=== PATIENT | female | born 1965 | race Caucasian/White ===

== ENCOUNTER → 2017-07-27 11:17 | Outpatient (CLI) | payer BC, SELFPAY ==
--- NOTE | 2017-07-27 11:22 | XR_ITS ---
XR chest 2V HISTORY: ITS.REASON: CHEST PAIN ORDERING PHYSICIAN: Dior Escobedo PATIENT AGE: 51 years COMPARISON: None available FINDINGS: The cardiomediastinal silhouette and pulmonary vascularity are within normal limits. The lungs are clear without infiltrates, suspicious nodules, or pleural effusions. No acute bony abnormalities. IMPRESSION: Negative chest, no acute finding
== END ==
PROVIDERS: PCP Family Medicine; Visit Provider Nurse Practitioner Family
DX: E03.9 Hypothyroidism, unspecified (principal); Z87.898 Personal history of other specified conditions
CPT/HCPCS: 71046; 93005

== ENCOUNTER → 2018-05-03 16:14 | Outpatient (CLI) | payer BC, SELFPAY ==
--- NOTE | 2018-05-03 16:18 | MM_ITS ---
MM Dig screening mamm BI w/CAD CAD Screening COMPARISON: Additional views right breast 12/05/2015 and digital mammograms with CAD 11/07/2015 INDICATION: There is a history of breast cancer patient's mother diagnosed after menopause. TECHNIQUE: Standard CC and MLO images were obtained. R2 CAD reviewed. FINDINGS: Moderate scattered fiber glandular densities are seen in the central portions of both breasts and the findings are bilateral and symmetrical. There is a stable nodular density near the axilla tail right breast likely lobe lying node. There is no suspicious lesion and no suspicious microcalcifications. IMPRESSION: Moderate breast density with no suspicious lesion seen BI-RADS Category: 2 Benign Finding(s) RECOMMENDED FOLLOW-UP: 1YR - 1 YEAR FOLLOW-UP (A letter has been sent to the patient regarding results of the study.)
== END ==
PROVIDERS: PCP Family Medicine; Visit Provider Family Medicine
DX: Z12.31 Encounter for screening mammogram for malignant neoplasm of breast (principal)
CPT/HCPCS: 77067

== ENCOUNTER → 2020-02-20 07:38 | Outpatient (CLI) | payer BC, SELFPAY ==
--- NOTE | 2020-02-20 07:41 | MM_ITS ---
PROCEDURE: MM DIG SCREENING MAMM BI W/CAD Referring Doctor: Dior Escobedo Patient Age:54Y CLINICAL INDICATION: SCREENING routine. No hormones. No new complaints. Positive family history: Mother with breast cancer age 60 postmenopausal; Also sister with breast cancer. COMPARISON: MG DMSB DIGITAL MAMM-SCREEN BILATERAL from 11/15/2011 MG DMSB DIG MAMM-SCREEN SUKHDEV from 11/07/2015 MG DMDXUAVR DIG MAMM-DX UNI ADD VIEWS-RT from 12/05/2015 MG SCBI MM Dig screening mamm BI w/CAD from 05/03/2018 TECHNIQUE: Standard CC and MLO images were obtained. R2 CAD reviewed. Bilateral digital breast tomosynthesis included. Additional CC nipple profile views both breast FINDINGS: Moderate heterogeneous fibroglandular elements bilaterally, no suspicious calcifications No new dominant or suspicious mass... No prominent new findings versus prior studies but no suspicious calcifications Right breast: Stable with no significant new findings Stable minimal areas of asymmetric density Left breast: No new areas of significant concern Areas of minor density on one view dissipate on the other and not seen on tomosynthesis views IMPRESSION: Stable bilateral mammogram No new areas of significant concern Bilateral follow-up 1 year recommended BI-RAD Category: 2 Benign Finding(s) FOLLOW-UP: 1YR 1 Year Follow-up. (A letter has been sent to the patient regarding results of the study.) Dictated by: Carlos Eduardo Wilkerson MD 02/26/2020 11:18 Carlos Eduardo Wilkerson MD in [place] 02/26/2020 11:18
== END ==
PROVIDERS: PCP Family Medicine; Visit Provider Nurse Practitioner Family
DX: Z12.31 Encounter for screening mammogram for malignant neoplasm of breast (principal)
CPT/HCPCS: 77063; 77067

== ENCOUNTER → 2021-03-27 07:40 | Outpatient (CLI) | payer BC, SELFPAY ==
--- NOTE | 2021-03-27 07:44 | MM_ITS ---
PROCEDURE INFORMATION: Exam: MG Bilateral Screening 3D Mammography Exam date and time: 03/27/2021 7:44 AM Age: 55 years old Clinical indication: Screening mammogram TECHNIQUE: Imaging protocol: Bilateral screening tomosynthesis and 2D mammography including computer-aided detection (CAD) when performed. COMPARISON: 05/03/2018, 11/07/2015, 02/20/2020 FINDINGS: MAMMOGRAPHY: Breast composition: There are scattered areas of fibroglandular density. Mass: None. Architectural distortion: No new or suspicious architectural distortion. Calcifications: No new or suspicious calcifications are present Asymmetric density: No new or suspicious asymmetric density is present Skin thickening: None. Axillary adenopathy: None. IMPRESSION: No mammographic evidence of malignancy. Recommend annual screening mammography unless otherwise clinically indicated. ASSESSMENT: BI-RADS category 1: Negative
== END ==
PROVIDERS: PCP Family Medicine; Visit Provider Family Medicine
DX: Z12.31 Encounter for screening mammogram for malignant neoplasm of breast (principal)
CPT/HCPCS: 77063; 77067

== ENCOUNTER → 2022-04-05 12:29 | Outpatient (CLI) | payer BC, SELFPAY ==
--- NOTE | 2022-04-05 12:57 | MM_ITS ---
PROCEDURE INFORMATION: Exam: MG Bilateral Screening 3D Mammography Exam date and time: 04/05/2022 12:56 PM Age: 56 years old Clinical indication: Screening examination TECHNIQUE: Imaging protocol: Bilateral Screening tomosynthesis and 2D mammography including computer-aided detection (CAD) when performed. COMPARISON: 1. MG MM DIG SCREENING MAMM BI W/CAD 03/27/2021 7:58 AM 2. MG MM DIG SCREENING MAMM BI W/CAD 02/20/2020 7:55 AM FINDINGS: MAMMOGRAPHY: Breast composition: There are scattered areas of fibroglandular density. Mass: None. Architectural distortion: None. Calcifications: No suspicious calcifications. Asymmetric density: None. Skin thickening: None. Axillary adenopathy: None. IMPRESSION: No mammographic evidence of malignancy. Annual screening is recommended unless otherwise clinically indicated. ASSESSMENT: BI-RADS Category 1: Negative
== END ==
PROVIDERS: PCP Family Medicine; Visit Provider Family Medicine
DX: Z12.31 Encounter for screening mammogram for malignant neoplasm of breast (principal)
CPT/HCPCS: 77063; 77067

== ENCOUNTER → 2022-09-24 13:30 | Outpatient (CLI) | payer BC, SELFPAY ==
--- NOTE | 2022-09-24 13:37 | US_ITS ---
FINAL REPORT CLINICAL HISTORY: CYSTOLE FINDINGS: Transvaginal sonographic images of the pelvis were obtained. The uterus measures 6.4 x 3.1 x 4.7 cm. No mass is identified. The endometrium measures 3 mm which is within normal limits. The right ovary measures up to 1.9 cm. The left ovary measures 1.9 cm. IMPRESSION: Unremarkable pelvic ultrasound. Reviewed, Interpreted and Dictated by Ford Pennington III, MD Transcribed by Dior Guillermo Authenticated and [facility]
== END ==
PROVIDERS: PCP Family Medicine; Visit Provider Nurse Practitioner Family
DX: N81.11 Cystocele, midline (principal)
CPT/HCPCS: 76856

== ENCOUNTER → 2023-04-14 10:07 | Outpatient (CLI) | payer BC, SELFPAY ==
--- NOTE | 2023-04-14 10:12 | MM_ITS ---
PROCEDURE INFORMATION: Exam: MG Bilateral Screening 3D Mammography Exam date and time: 04/14/2023 10:15 AM Age: 57 years old Clinical indication: Screening examination TECHNIQUE: Imaging protocol: Bilateral Screening tomosynthesis and 2D mammography including computer-aided detection (CAD) when performed. COMPARISON: 1. MG MM DIG SCREENING MAMM BI W/CAD 04/05/2022 12:56 PM 2. MG MM DIG SCREENING MAMM BI W/CAD 03/27/2021 7:58 AM FINDINGS: MAMMOGRAPHY: Breast composition: There are scattered areas of fibroglandular density. Mass: None. Architectural distortion: None. Calcifications: No suspicious calcifications. Asymmetric density: None. Skin thickening: None. Axillary adenopathy: None. IMPRESSION: No mammographic evidence of malignancy. Annual screening is recommended unless otherwise clinically indicated. ASSESSMENT: BI-RADS Category 1: Negative
== END ==
PROVIDERS: PCP Nurse Practitioner Family; Visit Provider Nurse Practitioner Family
DX: Z12.31 Encounter for screening mammogram for malignant neoplasm of breast (principal)
CPT/HCPCS: 77063; 77067

== ENCOUNTER 2024-04-26 13:46 | Outpatient (CLI) | payer BC, SELFPAY ==
--- NOTE | 2024-04-26 13:51 | MM_ITS ---
PROCEDURE INFORMATION: Exam: MG Bilateral Screening 3D Mammography Exam date and time: 04/26/2024 1:42 PM Age: 58 years old Clinical indication: Screening examination TECHNIQUE: Imaging protocol: Bilateral Screening tomosynthesis and 2D mammography including computer-aided detection (CAD) when performed. COMPARISON: No relevant prior studies available. FINDINGS: MAMMOGRAPHY: Breast composition: There are scattered areas of fibroglandular density. Mass: No suspicious masses. Architectural distortion: None. Calcifications: No suspicious calcifications. Asymmetric density: None. Skin thickening: None. Axillary adenopathy: None. IMPRESSION: No mammographic evidence of malignancy. Annual screening is recommended unless otherwise clinically indicated. ASSESSMENT: BI-RADS Category 1: Negative.
== END 2024-04-26 23:59 | disposition home or self-care (01) ==
LOC: RAD 13:46
PROVIDERS: PCP Family Medicine; Visit Provider Family Medicine
DX: Z12.31 Encounter for screening mammogram for malignant neoplasm of breast (principal)
CPT/HCPCS: 77063; 77067

== ENCOUNTER 2024-07-07 13:01 | Emergency (ER) | payer BC, SELFPAY ==
[2024-07-07 13:34] VITALS: BP 145/89; PULSE 92; RESP 18; TEMP 36.6; O2SAT 100; BMI 27.3
--- NOTE | 2024-07-07 13:55 | ED_ITS ---
Discharge Plan Disposition Patient Disposition: Home, Self-Care Condition: Good Prescriptions Prescriptions: New amoxicillin 500 mg tablet 500 mg PO BID 10 Days Qty: 20 0RF No Action levothyroxine 75 mcg tablet 75 mcg PO DAILY 30 Days Qty: 30 montelukast 10 mg tablet 10 mg PO DAILY 90 Days Qty: 90 metronidazole 0.75 % cream 1 applic topical DAILY omeprazole 20 mg capsule,delayed release(DR/EC) 20 mg PO DAILY rosuvastatin 20 mg tablet 20 mg PO DAILY metformin 500 mg tablet 500 mg PO DAILY Referrals Follow up/Referrals: Deuce Porter MD [Primary Care Provider] - See instructions Activity Restrictions/Add. Instructions Additional Instructions/Restrictions: Start antibiotic as soon as possible and be sure to take as ordered for full length of time even though he should start feeling better in 24-48 hours. Tylenol or Motrin as needed for pain or fever Encourage fluids, water, Gatorade, Powerade, Pedialyte if /toddler/child Warm compresses often helps when placed over ear Return immediately for new or worsening symptoms no noticeable improvement in 48-72 hours and in 10-14 days to ensure the ears are return to baseline. Follow-up with primary care Clinical Impressions Clinical Impression: Upper respiratory infection, viral Otitis media Qualifiers: Otitis media type: suppurative Chronicity: acute Laterality: left Recurrence: non-recurrent Spontaneous tympanic membrane rupture: without spontaneous rupture Qualified Code(s): H66.002 - Acute suppurative otitis media without spontaneous rupture of ear drum, left ear Instructions Patient Instructions: Middle Ear Infection, DI for Viral Upper Respiratory Infection -- Adult Print Language Print Language: Hebrew Discharge ED Provider: Leo ([facility])Carri [facility] [place] HPI General Stated complaint: congestion, ear pain, cough Mode of Arrival: Ambulatory Source of Information: Patient Time Seen by Provider: 07/07/24 13:55 Description of Symptoms (Recalled from Triage Doc. by RN): STUFFY NOSE, RUNNY NOSE, EARS HURT, COUGHING HEENT Symptoms (Recalled from RN notes): Yes Resp Symptoms (Recalled from RN notes): Yes Skin Symptoms (Recalled from RN notes): No MS Symptoms (Recalled from RN notes): No Functional Status (Recalled from RN notes): WNL History of Present Illness Provider Complaint: 58-year-old female presents for complaints of runny nose, stuffy nose, bilateral ear pain and coughing since yesterday. Denies fever Related Data Home Medications ?Medication ?Instructions ?Recorded ?Confirmed levothyroxine 75 mcg tablet 75 mcg PO DAILY 30 days #30 tabs 05/18/18 10/14/22 montelukast 10 mg tablet 10 mg PO DAILY 90 days #90 tabs 05/18/18 07/07/24 metformin 500 mg tablet 500 mg PO DAILY 10/14/22 07/07/24 metronidazole 0.75 % topical cream 1 applic topical DAILY 10/14/22 10/14/22 omeprazole 20 mg capsule,delayed 20 mg PO DAILY 10/14/22 10/14/22 release rosuvastatin 20 mg tablet 20 mg PO DAILY 10/14/22 07/07/24 Previous Rx's ?Medication ?Instructions ?Recorded amoxicillin 500 mg tablet 500 mg PO BID 10 days #20 tabs 07/07/24 Allergies Allergy/AdvReac Type Severity Reaction Status Date / Time No Known Allergies Allergy Verified 10/14/22 10:43 Worker's Comp Is this a Worker's Comp case?: No [employer] Disclaimer: The information contained in this section may have been updated after the patient was seen, as this information can be updated by other users. 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) Smoking Status: Never smoker alcohol intake: never substance use type: denies use current occupational status: employed Travel in the last 8 weeks: None Have you lived/traveled outside US in past 30 days?: No Contact w/someone who lives/traveled outside US past 30 days?: No Exposure to someone with infectious disease in past 14 days?: No Do you have a fever (greater than 100.4 F or 38 C)?: No Have you tested positive for COVID-19: No Exposed to someone with COVID-19 in past 14 days?: No Do you have a sore throat?: No Do you have a cough?: Yes Do you have any weakness?: No Do you have any diarrhea?: No Are you experiencing any unusual bleeding?: No Do you have any muscle aches/pain?: No Do you have any abdominal pain?: No Are you experiencing loss of taste or smell?: No ROS Obtained: Yes Systems reviewed as appropriate & no additional complaints except as documented ENT Ears, Nose, Mouth, and Throat: Reports system reviewed and no additional complaints, except as documented, Reports as per HPI, Reports otalgia, Reports nasal congestion, Reports nasal discharge and Reports sinus pressure Respiratory Respiratory: Reports system reviewed and no additional complaints, except as documented and Reports cough Physical Exam General General appearance: alert and in no apparent distress Eye Eye exam: Present normal appearance ENT ENT exam: Present normal exam, normal oropharynx and mucous membranes moist Expanded ENT Exam TM/Canal exam: Left TM: erythema, bulging and loss of landmarks Respiratory Respiratory exam: Present normal lung sounds bilaterally Cardiovascular Cardiovascular exam: Present regular rate and normal rhythm Neurological Exam Neurological exam: Present alert and oriented X3 Skin Skin exam: Present warm and intact Medical Decision Making Medical Records Medical records reviewed: Yes I reviewed the patient's medical records. Screening: Per USPSTF and CDC recommendations, given the prevalence of disease in our region, it is our hospital?s policy to screen for HIV and viral Hepatitis for all patients aged 18 and over and those with ongoing risk factors. Efrain Inquiry Pt receiving controlled substance: No Efrain was queried for this patient: No Vital Signs: 07/07/24 13:34 Temperature 97.9 F Temperature Source Oral Pulse Rate [Left Radial] 92 H Respiratory Rate 18 Blood Pressure [Left Arm] 145/89 H Blood Pressure Mean [Left Arm] 107 02 Sat by Pulse Oximetry 100 Lab Data Lab results reviewed: Yes I reviewed the patient's lab results.
[2024-07-07 14:22] VITALS: BP 145/89; PULSE 92; RESP 18; TEMP 36.6
[2024-07-07 14:24] LABS: Coronavirus 19, PCR Not Detected (NotDetected); Influenza A, PCR Not Detected (NotDetected); Influenza B, PCR Not Detected (NotDetected)
== END 2024-07-07 14:23 | disposition home or self-care (01) ==
PROVIDERS: Emergency Provider Nurse Practitioner Family; PCP Family Medicine
DX: J06.9 Acute upper respiratory infection, unspecified (principal); H66.002 Acute suppurative otitis media without spontaneous rupture of ear drum, left ear
CPT/HCPCS: 87636; 99212; G0381

== ENCOUNTER 2024-07-31 09:59 | Outpatient (CLI) | payer BC, SELFPAY ==
--- NOTE | 2024-07-31 10:07 | XR_ITS ---
FINAL REPORT CLINICAL HISTORY: hypothyroidism COMPARISON: None FINDINGS: NECK SOFT TISSUE Two views of the neck using soft tissue technique show a normal appearance of the epiglottis. Surgical clips are noted in the anterior neck, presumably from thyroidectomy. No radiopaque foreign body identified. There is multilevel degenerative disease of the cervical spine. Precervical soft tissues are unremarkable. IMPRESSION: No acute abnormality identified of the neck soft tissues. Reviewed, Interpreted and Dictated by Tania Rhoades MD Transcribed by Kalani Daniel Authenticated and [facility]
--- NOTE | 2024-07-31 10:07 | XR_ITS ---
FINAL REPORT CLINICAL HISTORY: right shoulder pain COMPARISON: None FINDINGS: Three views of the right shoulder were obtained. There is no fracture or dislocation. There is mild degenerative joint disease. Soft tissues are unremarkable. IMPRESSION: Mild degenerative change without acute osseous abnormality of the right shoulder. Reviewed, Interpreted and Dictated by Tania Rhoades MD Transcribed by Kalani Daniel Authenticated and [facility]
== END 2024-07-31 23:59 | disposition home or self-care (01) ==
LOC: RAD 10:03
PROVIDERS: PCP Nurse Practitioner Family; Visit Provider Nurse Practitioner Family
DX: M25.511 Pain in right shoulder (principal); E03.9 Hypothyroidism, unspecified
CPT/HCPCS: 70360; 73030

== ENCOUNTER 2025-06-07 10:07 | Outpatient (CLI) | payer BC, SELFPAY ==
--- OUTSIDE RECORDS SUMMARY | 2024-04-16 04:30 | XMS_ITS ---
[facility] Address [address] [facility] [place] [address] [address] [id number] Care Team Providers Care Pawn Broker Name Role Phone Rafael Porter Primary Care Provider [phone] Remedios Escobedo Unavailable [phone] Allergies No Known Allergies Results Component Value Reference Range Notes CBC Fingerstick (in house) Reviewed date:04/17/2024 11:05:06 AM Interpretation: Performing Lab: Notes/Report: wbc 6.7 3.5 - 10 lym 33.4 15 - 50 mid 6.6 2 - 15 gran 60.0 35 - 80 rbc 4.63 3.5 - 5.5 hgb 14.3 11.5 - 16.5 hct 43.4 35 - 55 mcv 93.6 75 - 100 mch 30.8 25 - 35 mchc 32.9 31 - 38 plat 207 100 - 400 REASON FOR VISIT Possible Sinus Infection Medications Medication SIG (Take, Route, Frequency, Duration) Notes Start Date End Date Status PriLOSEC OTC 20 MG 1 tab(s) orally once a day Active metroNIDAZOLE 0.75 % 1 aashish applied topic ally 2 times a day; Duration: 30 day(s) 09/21/2022 Active Levothyroxine Sodium 75 MCG TAKE 1 TABLE T BY MOUTH EVERY DAY; Duration: 90 Active metFORMIN HCl 500 MG TAKE 1 TABLET BY MO UTH TWICE A DAY; Duration: 90 Active Montelukast Sodium 10 MG TAKE 1 TABLET B Y MOUTH EVERY DAY Active Amoxicillin-Pot Clavulanate 875-125 MG 1 tablet Orally every 12 hrs; Duration: 10 day(s) 04/16/2024 Active Coenzyme Q10 100 MG 1 cap(s) orally once a day 12/09/2016 Active Rosuvastatin Calcium 20 MG TAKE 1 TABLET BY MOUTH ONCE NIGHTLY AT BEDTIME FOR 30 DAYS; Duration: 90 Active Vital Signs Blood pressure systolic 120 mm Hg 04/16/20 24 Blood pressure diastolic 64 mm Hg 024 Heart Rate 79 /min 04/16/2024 Height 63 in 04/16/2024 Weight 141.0 lbs 04/16/2024 BMI 24.97 kg/m2 04/16/2024 Encounters Encounter Location Date Provider Diagnosis [facility] [address] [place] [id number] 04/16/2024 Remedios Escobedo Sinusitis J32 .9 Assessments Encounter Date Diagnosis (ICD Code) Assessment Notes Treatment Notes Treatment Clinical Notes Section Notes 04/16/2024 Sinusitis (ICD-10 - J32.9) fluids, rest, supportive measures for fever/symptom relief Plan Of Treatment Medication Medication Name Sig Start Date Stop Date Notes Montelukast Sodium 10 MG TAKE 1 TABLET B Y MOUTH EVERY DAY Amoxicillin-Pot Clavulanate 875-125 MG 1 tablet Orally every 12 hrs; Duration: 10 day(s) 04/16/2024 Treatment Notes Assessment Notes Sinusitis fluids, rest, suppor tive measures for fever/symptom relief Next Appt Details Follow Up: prn, Reason: Progress Notes * MONI ALEXXEDOB:1965 (59 yo F)Acc No.[id number]:04/16/2024 Progress Notes Patient: TOVA MARKS Provider: CLRAA Wahl :1965 A ge:58 Y S ex:Female Date:04/16/2024 Address:[address] [place] [address], [id number] Pcp:Rafael Porter Subjective: * Chief Complaints: * 1 . Possible Sinus Infection. * HPI: E NT/respiratory: 58 year old female presents with c/o cough P t is here today with c/o possible sinus infection. Pt sts she has a small cough, but mainly has sneezing runny nose, and nasal congestion and sts her symptoms started on Tuesday. Pt sts she has been taking Zyrtec B and sts it helps when she first takes and then no longer helps. c/o nasal congestion. c/o headache s mall headache. Denies : sore throat. D enies : Fever. D enies : ear pain. D enies : Chest Pain. D enies : Short of Breath. D enies : chest congestion. D enies : body aches. * ROS: D ERMATOLOGY: no R leena. n o H rehan. G ASTROENTEROLOGY: no N ausea. n o V omiting. U ROLOGY: no D ifficulty urinating. n o B lood in urine. * Medical History: H ypothyroidism, DM, CHRONIC RIGHT EAR INFECTIONS, Rosacea. * Surgical History: t ubal , tonsillectomy , kidney stones , Thyroid removed- 05/16/16. * Hospitalization/Major Diagno stic Procedure: s ee above . * Family History: F ather: , lung cancer. M other: alive, breast cancer. P aternal aunt: breast cancer. 2 sister(s) . 1 son(s) , 2 daughter(s) . . 02/11/20-sister just Dx with breast cancer. * Social History: C URRENT TOBACCO USE: No . C affeine: yes, frequency:coffee and pop. Exercise: no. Home smoke detector use: yes. Marital Status: . Occupation: Works swing shift in factory. Past smoking status: no, Smoking status: Does not smoke. Alcohol: No, Type: , Frequency: ,Years: , Determination:. Sexually active: yes. * Medications: T aking Coenzyme Q10 100 MG Capsule 1 cap(s) orally once a day , Taking metroNIDAZOLE 0.75 % Cream 1 aashish applied topically 2 times a day , Taking PriLOSEC OTC 20 MG Tablet Delayed Release 1 tab(s) orally once a day , Taking metFORMIN HCl 500 MG Tablet TAKE 1 TABLET BY MOUTH TWICE A DAY , Taking Levothyroxine Sodium 75 MCG Tablet TAKE 1 TABLET BY MOUTH EVERY DAY , Taking Montelukast Sodium 10 MG Tablet TAKE 1 TABLET BY MOUTH EVERY DAY , Taking Rosuvastatin Calcium 20 MG Tablet TAKE 1 TABLET BY MOUTH ONCE NIGHTLY AT BEDTIME FOR 30 DAYS , Medication List reviewed and reconciled with the patient * Allergies: N .K.D.A. Objective: * Vitals: W t:141.0, Temp:98.0, BP:120/64, HR:79, O2 Sat:95% on RA, Nurse:EMA, Ht: 63, BMI:24.97. * Examination: E NT/Respiratory: General Appearance: well nourished and hydrated NAD alert active. E yes: sclera and conjunctiva clear. E ars: auditory canals normal bilaterally; right TM with fluid. N ose : congested. O ral cavity : no erythema or exudate seen on pharynx. N danielle : supple no cervical lymphadenopathy. H eart : RRR. L ungs: CTAB A&P. Assessment: * Assessment: 1. S inusisridevi - J32.9 (Primary) Plan: * Treatment: Value Reference Range w bc 6.7 3.5 - 10 * l ym 33.4 15 - 50 * m id 6.6 2 - 15 * g ran 60.0 35 - 80 * r bc 4.63 3.5 - 5.5 * h gb 14.3 11.5 - 16.5 * h ct 43.4 35 - 55 * m cv 93.6 75 - 100 * m ch 30.8 25 - 35 * m chc 32.9 31 - 38 * p lat 207 100 - 400 * Quita Lopez 04/16/2024 9: Jacky lozano reviewed results while patient in office. 32:02 AM > Notes: fluids, rest, supportive measures for fever/symptom relief?? * Procedure Codes: 9 47[address] [place], [address] CAPILLARY BLOOD DRAW, 70928 CBC WITH AUTO DIFF * Follow Up: p rn * Images: Billing Information: * Visit Code: 70437 Office Visit, Est Pt., Level 3. * Procedure Codes: [address] [place]. [address] CAPILLARY BLOOD DRAW. 62341 CBC WITH AUTO DIFF. * Electronic signature of Johana Escobedo APRN on 06/07/2025 at 10:09 AM EST Sign off status: Pending * Provider: CLARA Wahl Date: 06/16/2023 Generated for Krystian yeh/Ben/Paula on: 08/08/2024 10:09 AM EST History and Physical Notes * HPI (History of Present Illness) Category Sub-Category Detail Notes Category Not es ENT/respiratory sore throat ear pain Short of Breath Chest Pain cough Pt is here today wit h c/o possible sinus infection. Pt sts she has a small cough, but mainly has sneezing runny nose, and nasal congestion and sts her symptoms started on Tuesday. Pt sts she has been taking Zyrtec B and sts it helps when she first takes and then no longer helps Fever headache small headache chest congestion nasal congestion body aches Examination Category Sub-Category Detail Notes Category Not es ENT/Respiratory Oral cavity : no erythema or exudate s een on pharynx Ears: auditory canals norm al bilaterally; right TM with fluid Neck : supple no cervical l ymphadenopathy Heart : RRR Lungs: CTAB A&P General Appearance: well nourished and h ydrated NAD alert active Nose : congested Eyes: sclera and conjuncti va clear
--- OUTSIDE RECORDS SUMMARY | 2024-07-31 04:30 | XMS_ITS ---
Author Organization [facility] Address [address] [place] [phone] Care Team Providers Care Cognos Lead Name Role Phone Rafael Porter Primary Care Provider Remedios Escobedo Unavailable [phone] Allergies No Known Allergies Results Component Value Reference Range Notes Glycohemoglobin A1c (in hous e) Reviewed date:08/06/2024 09:16:03 AM Interpretation:5.4% Performing Lab: Notes/Report: 5.4% glycohemoglobin 5.4% 5 - 6.5 % Cologuard Reviewed date:08/16/2024 04:10:22 PM Interpretation:Negative Performing Lab: Notes/Report: Negative P-Comprehensive Metabolic Pa roxanna (CMP) Reviewed date:08/06/2024 09:16:14 AM Interpretation: Performing Lab: Notes/Report: Test performed by [facility] [address] [place] [address] , [address], [place] [address] Bertin Macedo MD, [employer] Supervisor CLIA: [id number] Sodium 143 135-145 mmol/L Potassium 4.4 3.5-5.3 mmol/L Chloride 104 97-108 mmol/L CO2 27 22-32 mmol/L Glucose 87 65-99 mg/dL BUN 15 6-20 mg/dL Creatinine 0.57 0.50-1.00 mg/dL Calcium 9.4 8.6-10.4 mg/dL eGFR by Creatinine 104 >59 mL/min/1.73m2 Protein 7.1 6.0-8.3 g/dL Albumin 4.5 3.5-5.3 g/dL Alkaline Phosphatase 55 35-121 IU/L ALT (SGPT) 23 <5-47 IU/L AST (SGOT) 22 <5-40 IU/L Bilirubin, Total 0.5 <0.2-1.2 mg/dL A/G Ratio 1.7 1.1-2.5 P-Lipid Panel Reviewed date:08/06/2024 09:14:23 AM Interpretation:TC 171; HDL 67;IDI 88 TG 80 Performing Lab: Notes/Report: Test performed by [facility] [address] [place] [address] , [place] [address] Bertin Macedo MD, [employer] Supervisor CLIA: [id number] Cholesterol 171 <200 mg/dL Triglycerides 80 <150 mg/dL HDL Cholesterol 67 >39 mg/dL Cholesterol / HDL Ratio 2.55 0.00-4.44 Ratio Non-HDL Cholesterol 104 <130 mg/dL LDL Cholesterol (Calculation) 88 <130 mg/dL LDL Cholesterol Levels* Less than 100 mg/dL Optimal 100 to 129 mg/dL Near Optimal/ Above Optimal 130 to 159 mg/dL Borderline High 160 to 189 mg/dL High 190 mg/dL and above Very High * Categories as recommended by the 2004 ATPIII guidelines LDL/HDL Ratio 1.3 <3.3 Ratio LDL Cholesterol Patient History Test Date: 09/21/2022 LDL Results: 71 Units: mg/dL % Change: - Test Date: 07/15/2023 LDL Results: 93 Units: mg/dL % Change: +30% Test Date: 07/31/2024 LDL Results: 88 Units: mg/dL % Change: -5% P-TSH Reviewed date:08/06/2024 03:41:47 PM Interpretation:0.30 Performing Lab: Notes/Report: Test performed by [facility] [address] [place] [address] , [address], [place] [address] Bertin Macedo MD, [employer] Supervisor CLIA: [id number] TSH 0.30 0.43-5.25 mU/L X ray : Shoulder, right Reviewed date:08/06/2024 03:41:03 PM Interpretation:mild degenerative change Performing Lab: Notes/Report: mild degenerative change X ray : neck, ap view Reviewed date:08/06/2024 03:41:20 PM Interpretation:Negative DDD Performing Lab: Notes/Report: Negative DDD X ray : Neck, lateral Reviewed date:08/03/2024 10:43:08 AM Interpretation: Performing Lab: Notes/Report: REASON FOR VISIT med checkup Medications Medication SIG (Take, Route, Frequency, Duration) Notes Start Date End Date Status Coenzyme Q10 100 MG 1 cap(s) orally once a day 12/09/2016 Active metroNIDAZOLE 0.75 % 1 aashish applied topic ally 2 times a day; Duration: 90 day(s) 09/21/2022 Active Medrol 4 MG as directed orally daily; Duration: 6 days 07/31/2024 Active Montelukast Sodium 10 MG take 1 tablet b y mouth every day Orally Once a day; Duration: 90 days Active PriLOSEC OTC 20 MG 1 tab(s) orally once a day Active metFORMIN HCl 500 MG 1 tablet with a norman l Orally Two times a day; Duration: 90 days Active Rosuvastatin Calcium 20 MG 1 tablet oral ly once a day; Duration: 90 days Active Levothyroxine Sodium 75 MCG take 1 table t by mouth every day Orally Once a day; Duration: 90 days Active Problems Problem Type SNOMED Code ICD Code Onset Dates Problem Status W/U Status Risk Notes Problem Neck pain (76569347) Neck pain (M54.2) Active confirmed Vital Signs Blood pressure systolic 126 mm Hg 07/31/19 25 Blood pressure diastolic 70 mm Hg 025 Heart Rate 66 /min 07/31/2024 Height 63 in 07/31/2024 Weight 139.4 lbs 07/31/2024 BMI 24.69 kg/m2 07/31/2024 Encounters Encounter Location Date Provider [facility] [address], [place] [phone] 07/31/2024 Remedios Escobedo Acquired hypothyroid ism E03.9 ; Hyperlipidemia E78.5 ; Type 2 diabetes mellitus E11.9 ; Neck pain M54.2 ; Shoulder pain M25.519 ; Acne rosacea L71.9 ; Gastroesophageal reflux disease without esophagitis K21.9 ; Colon cancer screening Z12.11 and Allergic cough R05 Assessments Encounter Date Diagnosis (ICD Code) Assessment Notes Treatment Notes Treatment Clinical Notes Section Notes 07/31/2024 Acquired hypothyroidism (ICD-10 - E03.9) 07/31/2024 Hyperlipidemia (ICD-10 - E78.5) 07/31/2024 Type 2 diabetes mellitus (ICD-10 - E11.9) 07/31/2024 Neck pain (ICD-10 - M54.2) will try MDP to see if this helps; pt aware this may cause increase in BS; continue with heat prn; and NSAIDS prn 07/31/2024 Shoulder pain (ICD-10 - M25.519) 07/31/2024 Acne rosacea (ICD-10 - L71.9) 07/31/2024 Gastroesophageal reflux disease without esophagitis (ICD-10 - K21.9) 07/31/2024 Colon cancer screening (ICD-10 - Z12.11) 07/31/2024 Allergic cough (ICD-10 - R05) Plan Of Treatment Medication Medication Name Sig Start Date Stop Date Notes metroNIDAZOLE 0.75 % 1 asahish applied topic ally 2 times a day; Duration: 90 day(s) 09/21/2022 Medrol 4 MG as directed orally d aily; Duration: 6 days 07/31/2024 Montelukast Sodium 10 MG take 1 tablet b y mouth every day Orally Once a day; Duration: 90 days PriLOSEC OTC 20 MG 1 tab(s) orally once a day metFORMIN HCl 500 MG 1 tablet with a norman l Orally Two times a day; Duration: 90 days Rosuvastatin Calcium 20 MG 1 tablet oral ly once a day; Duration: 90 days Levothyroxine Sodium 75 MCG take 1 table t by mouth every day Orally Once a day; Duration: 90 days Treatment Notes Assessment Notes Neck pain will try MDP to see if this helps; pt aware this may cause increase in BS; continue with heat prn; and NSAIDS prn Next Appt Details Follow Up: 2 Weeks, Reason: Progress Notes * ALEXX MONTENEGROEDOB:1965 (59 yo F)Acc No.[id number]:07/31/2024 Progress Notes Patient: TOVA MARKS Provider: CLARA Wahl :1965 A ge:58 Y S ex:Female Date:07/31/2024 Address:[address] [place] [address] Pcp:Rafael Porter Subjective: * Chief Complaints: * 1 . Med checkup. * HPI: H PI: 58 year old female presents with c/o Patient is here today for?Pt is here today for a medication check up. Pt sts she needs refills. Pt sts she is fasting.? continues with healthy eating and watches her weight. E lbow/Arm: c/o pain P t sts her rt arm has been hurting her and she would like it looked at. works at [employer] with job duty requiring repitive motion of the right arm; did a carpal tunne test which was thought to be negative; uses creams and take IBUPROFEN 200 mg at HS for pain for sleep. * ROS: D ERMATOLOGY: no R leena. n o H rehan. E NT: Positive for h ad a left ear infection and was treated with ABx with resolution. F EMALE REPRODUCTIVE: Positive for h as annual mammogram. G ASTROENTEROLOGY: no N ausea. n o V omiting. M USCULOSKELETAL: Positive for r ight arm pain. O PTHALMOLOGY: Positive for h as annual eye exam. U ROLOGY: no D ifficulty urinating. n [...] tab(s) orally once a day , Taking Rosuvastatin Calcium 20 MG Tablet TAKE 1 TABLET BY MOUTH ONCE NIGHTLY AT BEDTIME FOR 30 DAYS , Taking metFORMIN HCl 500 MG Tablet 1 tablet with a meal Orally Two times a day , Taking Montelukast Sodium 10 MG Tablet TAKE 1 TABLET BY MOUTH EVERY DAY , Taking Levothyroxine Sodium 75 MCG Tablet TAKE 1 TABLET BY MOUTH EVERY DAY , Medication List reviewed and reconciled with the patient * Allergies: N .K.D.A. Objective: * Vitals: W t:139.4, Temp:97.9, BP:126/70, HR:66, O2 Sat:98% on RA, Nurse:jennifer, Ht: 63, BMI:24.69. * Examination: G eneral Examination: General Appearance: NAD, appears healthy, alert, well nourished and hydrated. H EENT: sclera and conjunctiva clear, PERRLA, TM's normal, translucent. O ral cavity: mucosa moist and WNL, no erythema. N danielle: supple, no lymphadenopathy. H eart: RRR, no ectopics. L ungs: CTAB A&P. N eurologic Exam:? alert and oriented. E xtremities: no leg edema, Benson's negative, negative Phallen's.? E lbow/Arm: Elbow: right, full ROM, no pain. S houlder / Upper arm: Shoulder: right. P alpation: no tenderness on subdeltoid bursa & bicipital tendon, no crepitations, ROM intact. N danielle: Vertebral spine tenderness: absent. P araspinal muscle spasm: absent bilaterally. R selam of motion of neck: normal in all directions.?Trapezius tenderness: absent bilaterally. S houlder joint: normal ROM. ? Assessment: * Assessment: 1. A cquired hypothyroidism - E03.9 (Primary) 2 . H yperlipidemia - E78.5? 3. T ype 2 diabetes mellitus - E11.9 4 . N danielle pain - M54.2? 5. S houlder pain - M25.519 S pecify :right 6 . A cne rosacea - L71.9 7 . G astroesophageal reflux disease without esophagitis - K21.9 8 . C olon cancer screening - Z12.11 9 . A llergic cough - R05 Plan: * Treatment: Value Reference Range T SH 0.30 L 0.43-5.25 - mU/L * Remedios Escobedo 08/06/2024 3:41:38 PM > , See encounter note ?Imaging: X ray : Shoulder, right (Performed Date - 07/31/2024)?mild degenerative change* Remedios Escobedo 08/06/2024 3:40:56 PM > , See encounter note ?Imaging: X ray : neck, ap view (Performed Date - 07/31/2024)?Negative DDD* Remedios Escobedo 08/06/2024 3:41:11 PM > , See encounter note ?Imaging: X ray : Neck, lateral (Performed Date - 08/03/2024)* see duplicate order 2.?Hyperlipidemia? Refill Rosuvastatin Calcium Tablet, 20 MG, 1 tablet orally once a day, 90 days, 90 Tablet, Refills 1.?LAB: P-Lipid Panel (Collection Date & Time - 07/31/2024 08:43 AM)?TC 171; HDL 67;IDI 88 TG 80* Value Reference Range C holesterol / HDL Ratio 2.55 0.00-4.44 - Ratio * C holesterol 171 <200 - mg/dL * H DL Cholesterol 67 >39 - mg/dL * L DL Cholesterol (Calculation) 88 <130 - mg/d L * L DL/HDL Ratio 1.3 <3.3 - Ratio * N on-HDL Cholesterol 104 <130 - mg/dL * T riglycerides 80 <150 - mg/dL * Remedios Escobedo 08/06/2024 9:14:20 AM > 3.?Type 2 diabetes mellitus? Refill metFORMIN HCl Tablet, 500 MG, 1 tablet with a meal, Orally, Two times a day, 90 days, 180 Tablet, Refills 1.?LAB: P-Comprehensive Metabolic Panel (CMP) (Collection Date & Time - 07/31/2024 08:43 AM)* Value Reference Range A /G Ratio 1.7 1.1-2.5 - * A lbumin 4.5 3.5-5.3 - g/dL * A lkaline Phosphatase 55 35-121 - IU/L * A LT (SGPT) 23 <5-47 - IU/L * A ST (SGOT) 22 <5-40 - IU/L * B ilirubin, Total 0.5 <0.2-1.2 - mg/dL * B UN 15 6-20 - mg/dL * C alcium 9.4 8.6-10.4 - mg/dL * C hloride 104 97-108 - mmol/L * C O2 27 22-32 - mmol/L * C reatinine 0.57 0.50-1.00 - mg/dL * G lucose 87 65-99 - mg/dL * P otassium 4.4 3.5-5.3 - mmol/L * S odium 143 135-145 - mmol/L * P rotein 7.1 6.0-8.3 - g/dL * e GFR by Creatinine 104 >59 - mL/min/1.73m2 * Remedios Escobedo 08/06/2024 9:16:12 AM > ?LAB: Glycohemoglobin A1c (in house) (Collection Date & Time - 07/31/2024)? 5.4%* Value Reference Range g lycohemoglobin 5.4% 5 - 6.5 % * Quita Lopez 07/31/2024 9:58: 47 AM >Remedios Escobedo 08/06/2024 9:14:53 AM > 4.?Neck pain? Start Medrol Tablet Therapy Pack, 4 MG, as directed, orally, daily, 6 days, 1, Refills 0.? Notes: will try MDP to see if this helps; pt aware this may cause increase in BS; continue with heat prn; and NSAIDS prn??5.?Acne rosacea? Refill metroNIDAZOLE Cream, 0.75 %, 1 aashish, applied topically, 2 times a day, 90 day(s), 1, Refills 3.??6.?Gastroesophageal reflux disease without esophagitis? Continue PriLOSEC OTC Tablet Delayed Release, 20 MG, 1 tab(s), orally, once a day.??7.?Colon cancer screening?LAB: Cologuard (Collection Date & Time - 08/15/2024)?Negative* Remedios Escobedo 07/31/2024 9:57:45 AM > please have sent to Bobbi Tubbs 07/31/2024 12:00:48 PM > order Remedios Cornejo 08/16/2024 9:48:51 AM > please report to pt neg results;Bobbi Sr 08/16/2024 04:10:00 PM > pt informed 8.?Allergic cough? Refill Montelukast Sodium Tablet, 10 MG, take 1 tablet by mouth every day, Orally, Once a day, 90 days, 90, Refills 1.?? * Procedure Codes: 9 [address] [place], [address] CAPILLARY BLOOD DRAW, [address] GLYCATED HEMOGLOBIN TEST, Modifiers: QW , 3074F SYST BP LT 130 MM HG, 3078F DIAST BP < 80 MM HG, 3044F HG A1C LEVEL LT 7.0% * Follow Up: 2 Weeks * Images: Billing Information: * Visit Code: 18870 Office Visit, Est Pt., Level 4. * Procedure Codes: [address] [place]. [address] CAPILLARY BLOOD DRAW. 22623 GLYCATED HEMOGLOBIN TEST. Modifiers: QW 3074F SYST BP LT 130 MM HG. 3078F DIAST BP < 80 MM HG. 3044F HG A1C LEVEL LT 7.0%. 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 Pt sts she needs refills. Pt sts she is fasting continues with healthy eating and watches her weight Examination Category Sub-Category Detail Notes Category Not es General Examination HEENT: sclera and c onjunctiva clear, PERRLA, TM's normal, translucent Heart: RRR, no ectopics Lungs: CTAB A&P Extremities: no leg edema, Benson' s negative, negative Phallen's General Appearance: NAD, appears healthy , alert, well nourished and hydrated Neurologic Exam: alert and oriented Neck: supple, no lymphaden opathy Oral cavity: mucosa moist and WNL , no erythema Neck Vertebral spine tenderness: absent Paraspinal muscle spasm: absent bilatera lly Range of motion of neck: normal in all d irections Trapezius tenderness: absent bilaterally Shoulder joint: normal ROM Shoulder / Upper arm Shoulder: right Palpation: no tenderness on sub deltoid bursa & bicipital tendon, no crepitations, ROM intact Elbow/Arm Elbow: right, full ROM, no pain
--- OUTSIDE RECORDS SUMMARY | 2024-08-20 11:15 | XMS_ITS ---
Author Organization [facility] Address [address] [facility] [address] [place] [phone] Care Team Providers Care Manager Philosophy Name Role Phone Rafael Porter Primary Care Provider Remedios Escobedo Unavailable [phone] Allergies No Known Allergies REASON FOR VISIT 2 week f/u Medications Medication SIG (Take, Route, Frequency, Duration) Notes Start Date End Date Status Meloxicam 15 MG 1 tablet Orally Once a day 08/06/2024 Active Montelukast Sodium 10 MG take 1 tablet b y mouth every day Orally Once a day; Duration: 90 days Active Levothyroxine Sodium 50 MCG take 1 table t by mouth every day Orally Once a day; Duration: 30 days Active PriLOSEC OTC 20 MG 1 tab(s) orally once a day Active metroNIDAZOLE 0.75 % 1 aashish applied topic ally 2 times a day; Duration: 90 day(s) 09/21/2022 Active Coenzyme Q10 100 MG 1 cap(s) orally once a day 12/09/2016 Active metFORMIN HCl 500 MG 1 tablet with a norman l Orally Two times a day; Duration: 90 days Active Rosuvastatin Calcium 20 MG 1 tablet oral ly once a day; Duration: 90 days Active Problems Problem Type SNOMED Code ICD Code Onset Dates Problem Status W/U Status Risk Notes Problem Inflammation of joint of shoulder region (118522116) Shoulder arthritis (M19.019) Active confirmed Vital Signs Blood pressure systolic 120 mm Hg 08/21/19 25 Blood pressure diastolic 70 mm Hg 025 Heart Rate 61 /min 08/20/2024 Height 63 in 08/20/2024 Weight 144.4 lbs 08/20/2024 BMI 25.58 kg/m2 08/20/2024 Encounters Encounter Location Date Provider Diagnosis [facility] [address] [facility] [address] [place] [phone] 08/20/2024 Remedios Escobedo Shoulder arthritis M19.019 Assessments Encounter Date Diagnosis (ICD Code) Assessment Notes Treatment Notes Treatment Clinical Notes Section Notes 08/20/2024 Shoulder arthritis (ICD-10 - M19.019) she will begin specific exercises as directed by her insurance [place]; heat/ice application prn 08/20/2024 Other she will FU in 2 months for repeat TSH Plan Of Treatment Medication Medication Name Sig Start Date Stop Date Notes Meloxicam 15 MG 1 tablet Orally Once a day 08/06/2024 Treatment Notes Assessment Notes Shoulder arthritis she will begin speci fic exercises as directed by her insurance [place]; heat/ice application prn Other she will FU in 2 mon ths for repeat TSH Next Appt Details Follow Up: prn, Reason: Progress Notes * ALEXX MONTENEGROEDOB:1965 (59 yo F)Acc No.[id number]:08/20/2024 Patient: TOVA MARKS Provider: CLARA Wahl :1965 A ge:58 Y S ex:Female Date:08/20/2024 Address:[address] [place], [place] [phone] Pcp:Rafael Porter Subjective: * Chief Complaints: * 1 . 2 week f/u. * HPI: H PI: 58 year old female presents with c/o Patient is here today for?Pt is here today for a 2 week f/u on her test results and xrays she had done. right shoulder is better with improved ROM ; she thinks Mobic has helped; reviewed all labs and xray. * ROS: D ERMATOLOGY: no R leena. [...] cap(s) orally once a day , Taking Rosuvastatin Calcium 20 MG Tablet 1 tablet orally once a day , Taking metFORMIN HCl 500 MG Tablet 1 tablet with a meal Orally Two times a day , Taking metroNIDAZOLE 0.75 % Cream 1 aashish applied topically 2 times a day , Taking PriLOSEC OTC 20 MG Tablet Delayed Release 1 tab(s) orally once a day , Taking Montelukast Sodium 10 MG Tablet take 1 tablet by mouth every day Orally Once a day , Taking Meloxicam 15 MG Tablet 1 tablet Orally Once a day , Taking Levothyroxine Sodium 50 MCG Tablet take 1 tablet by mouth every day Orally Once a day , Medication List reviewed and reconciled with the patient * Allergies: N .K.D.A. Objective: * Vitals: W t:144.4, Temp:98.4, BP:120/70, HR:61, Nurse:mm, Ht: 63, BMI:25.58. * P ast Orders: L ab:P-Lipid Panel (Order Date - 07/31/2024) (Collection Date & Time - 07/31/2024 08:43 AM) Result: TC 171; HDL 67;IDI 88 TG 80 Value Reference Range Cholesterol / HDL Ratio 2.55 0.00-4.44 - Rati o Cholesterol 171 <200 - mg/dL HDL Cholesterol 67 >39 - mg/dL LDL Cholesterol (Calculation) 88 <130 - mg/ dL LDL/HDL Ratio 1.3 <3.3 - Ratio Non-HDL Cholesterol 104 <130 - mg/dL Triglycerides 80 <150 - mg/dL Clinical Info: room B- purple top needed L ab:Glycohemoglobin A1c (in house) (Order Date - 07/31/2024) (Collection Date & Time - 07/31/2024) Result: 5.4% Value Reference Range glycohemoglobin 5.4% 5 - 6.5 % L ab:P-Comprehensive Metabolic Panel (CMP) (Order Date - 07/31/2024) (Collection Date & Time - 07/31/2024 08:43 AM) Value Reference Range A/G Ratio 1.7 1.1-2.5 - Albumin 4.5 3.5-5.3 - g/dL Alkaline Phosphatase 55 35-121 - IU/L ALT (SGPT) 23 <5-47 - IU/L AST (SGOT) 22 <5-40 - IU/L Bilirubin, Total 0.5 <0.2-1.2 - mg/dL BUN 15 6-20 - mg/dL Calcium 9.4 8.6-10.4 - mg/dL Chloride 104 97-108 - mmol/L CO2 27 22-32 - mmol/L Creatinine 0.57 0.50-1.00 - mg/dL Glucose 87 65-99 - mg/dL Potassium 4.4 3.5-5.3 - mmol/L Sodium 143 135-145 - mmol/L Protein 7.1 6.0-8.3 - g/dL eGFR by Creatinine 104 >59 - mL/min/1.73m2 Clinical Info: room B- purple top needed * Examination: G eneral Examination: General Appearance: NAD, appears healthy, alert. H eart: RRR. L ungs: CTAB A&P. S houlder / Upper arm: Shoulder: right. P alpation: no tenderness on subdeltoid bursa & bicipital tendon. R selam of motion: normal flexion, extension & rotation. Assessment: * Assessment: 1. S alejandro arthritis - M19.019 (Primary) S pecify :right Plan: * Treatment: 2. O thers Notes: she will FU in 2 months for repeat TSH * Procedure Codes: 3 074F SYST BP LT 130 MM HG, 3078F DIAST BP < 80 MM HG * Follow Up: p rn * Images: Billing Information: * Visit Code: 73130 Office Visit, Est Pt., Level 3. * Procedure Codes: 3074F SYST BP LT 130 MM HG. 3078F DIAST BP < 80 MM HG. * Electronic signature of Johana Escobedo APRN on 06/07/2025 at 10:10 AM EST Sign off status: Pending * Provider: CLARA Wahl Date: 0 08/20/2024 Generated for Krystian yeh/Ben/Paula on: 1 08/08/2024 10:10 AM EST History and Physical Notes * HPI (History of Present Illness) Category Sub-Category Detail Notes Category Not es HPI Patient is here toda y for Pt is here today for a 2 week f/u on her test results and xrays she had done right shoulder is better with improved ROM ; she thinks Mobic has helped; reviewed all labs and xray Examination Category Sub-Category Detail Notes Category Not es General Examination Heart: RRR Lungs: CTAB A&P General Appearance: NAD, appears healthy , alert Shoulder / Upper arm Range of motion: normal flexion, extension & rotation Shoulder: right Palpation: no tenderness on sub deltoid bursa & bicipital tendon
--- OUTSIDE RECORDS SUMMARY | 2024-11-02 03:30 | XMS_ITS ---
Author Organization [facility] Address [address] [facility] [address] [facility] [address] [place] [phone] Care Team Providers Care Enterprise Systems Engineer Name Role Phone Rafael Porter Primary Care Provider Remedios Escobedo [phone] Results Component Value Reference Range Notes P-TSH Reviewed date:11/07/2024 03:39:36 PM Interpretation:10.2 Performing Lab: Notes/Report: Test performed by [facility], [address] , [address], [place] [address] Bertin Macedo MD, Management Intern CLIA: [id number] TSH 10.20 0.43-5.25 mU/L REASON FOR VISIT blood work Encounters Encounter Location Date Provider Diagnosis [facility] [address] [place] [phone] 11/02/2024 Remedios Escobedo Acquired hypothyroid ism E03.9 Assessments Encounter Date Diagnosis (ICD Code) Assessment Notes Treatment Notes Treatment Clinical Notes Section Notes 11/02/2024 Acquired hypothyroidism (ICD-10 - E03.9) Plan Of Treatment No Information Progress Notes * ARYAN MONTENEGROOB:1965 (59 yo F)Acc No.[id number]:11/02/2024 Patient: MARRY MARKS Provider: CLARA Wahl :1965 A ge:59 Y S ex:Female Date:11/02/2024 Address:[address] [place] [address] [place], [id number] Pcp:Rafael Porter Subjective: * Chief Complaints: * 1 . Blood work. * Medical History: Objective: * Vitals: Assessment: * Assessment: 1. A cquired hypothyroidism - E03.9 Plan: * Treatment: Value Reference Range T SH 10.20 H 0.43-5.25 - mU/L * Remedios Escobedo 11/07/2024 03:38:31 PM >I spoke with Marry and she will incrase Levothyroxine to 75 mcg which she has at home; to repeat TSH in 3 months * Images: Billing Information: * Visit Code: * Procedure Codes: * Electronic signature of Johana Escobedo APRN on 06/07/2025 at 10:10 AM EST Sign off status: Pending * Provider: CLARA Wahl Date: 0 11/02/2024 Generated for Krystian yeh/Ben/Paula on: 1 08/08/2024 10:10 AM EST
--- OUTSIDE RECORDS SUMMARY | 2025-02-12 07:15 | XMS_ITS ---
Author Organization [facility] Address [address] [facility] 36 [facility] [address] [place] [phone] Care Team Providers Care Maintenance Of Way Superintendent Name Role Phone Rafael Porter Primary Care Provider Remedios Escobedo Unavailable [phone] Results Component Value Reference Range Notes P-TSH Reviewed date:02/15/2025 03:05:14 PM Interpretation:0.65 Performing Lab: Notes/Report: Test performed by [facility], [address] , [address], [place] [address] Bertin Macedo MD, Cleat Feeder CLIA: [id number] TSH 0.65 0.43-5.25 mU/L REASON FOR VISIT lab draw Encounters Encounter Location Date Provider Diagnosis Gurwinder [address] [facility] [address] [place] [phone] 02/12/2025 Remedios Escobedo Acquired hypothyroid ism E03.9 Assessments Encounter Date Diagnosis (ICD Code) Assessment Notes Treatment Notes Treatment Clinical Notes Section Notes 02/12/2025 Acquired hypothyroidism (ICD-10 - E03.9) Plan Of Treatment No Information Progress Notes * ARYAN MONTENEGROOB:1965 (59 yo F)Acc No.[id number]:02/12/2025 Patient: TOVA MARKS Provider: CLARA Wahl :1965 A ge:59 Y S ex:Female Date:02/12/2025 Address:[address] [place] [address] Nacho [place], [id number] Pcp:Rafael Porter Subjective: * Chief Complaints: * 1 . Lab draw. * Medical History: Objective: * Vitals: Assessment: * Assessment: 1. A cquired hypothyroidism - E03.9 (Primary) Plan: * Treatment: Value Reference Range T SH 0.65 0.43-5.25 - mU/L * Remedios Escobedo 02/14/2025 12:30:47 PM EDT >please notify pt of normal TSH and to continue with same med dosage[facility]15[facility] 01:58:52 PM EDT > LM for pt to return [facility] 02/15/2025 03:05:08 PM EDT > Pt notified * Images: Billing Information: * Visit Code: * Procedure Codes: * Electronic signature of Johana Escobedo APRN on 06/07/2025 at 10:10 AM EST Sign off status: Pending * Provider: CLARA Wahl Date: 0 02/12/2025 Generated for Krystian yeh/Ben/Luanaitting on: 1 08/08/2024 10:10 AM EST
--- OUTSIDE RECORDS SUMMARY | 2025-06-07 10:10 | XMS_ITS | Clinical Summary ---
Author Organization [facility] Address [address] [place] [phone] Phone Care Team Providers Care Timber Sizer Operator Name Role Phone Hugo Powers MD Primary Care Provider [phone] Allergies No known active allergies Medications metroNIDAZOLE (METROCREAM) 0.75 % Top Cream Apply topically daily. Active rosuvastatin (CRESTOR) 20 mg Oral Tablet Take 20 mg by mouth nightly. Active montelukast (SINGULAIR) 10 mg Oral Tablet Take 10 mg by mouth every evening. Active metFORMIN (GLUCOPHAGE) 500 mg Oral Tablet Take 500 mg by mouth daily. Active polyethylene glycol (GLYCOLAX) 17 gram/dose Oral PowderIndication s:Uterovaginal prolapse, complete,Pelvic floor dysfunction in female,GERARDO (stress urinary incontinence, female) Begin Miralax, 17 g (1 capful) PO mixed in your favorite drink once a day beginning 1 week prior to surgery, after surgery drink this twice a day for 2 weeks 595 g 3 Active zinc gluconate 50 mg Oral Tablet Take 50 mg by mouth daily. Active Cholecalciferol, Vitamin D3, 25 mcg (1,000 unit) Oral Capsule Take by mouth daily. Active omeprazole (PRILOSEC) 20 mg Oral Capsule, Delayed Release(E.C.) Take 20 mg by mouth daily. Active Coenzyme Q10 100 mg Oral Capsule Take 200 mg by mouth daily. Active LEVOthyroxine (SYNTHROID) 50 mcg Oral Tablet Take 50 mcg by mouth daily. for 30 days 3 Active docusate sodium (COLACE) 100 mg Oral Capsule Take 1 Capsule by mouth 2 times daily. 60 Capsule 2 3 Active ibuprofen (ADVIL;MOTRIN) 600 mg Oral Tablet Take 1 Tablet by mouth every 6 hours as needed for Pain. 60 Tablet 1 3 Active ondansetron (ZOFRAN-ODT) 4 mg Oral Tablet, Rapid Dissolve Take 1 Tablet by mouth every 6 hours as needed for Nausea. 30 Tablet 3 Active oxyCODONE (ROXICODONE) 5 mg Oral Tablet Take 1 Tablet by mouth every 6 hours as needed for Acute Pain (R52) or Major Surgery/Trauma (G89.18). 20 Tablet 3 Active senna (SENOKOT) 8.6 mg Oral Tablet Take 1 Tablet by mouth daily as needed for Constipation. 30 Tablet 1 3 Active estradioL (ESTRACE) 0.01 % (0.1 mg/gram) Vagl CreamIndications :Vaginal atrophy Place 1 g vaginally daily. Do NOT use applicator. Apply fingertip amount to affected area nightly x 2 weeks then use 2-3 x per week. 42.5 g 1 5 Active Active Problems Problem Noted Date Diagnosed Date Uterovaginal prolapse, complete 01/12/2023 Overview (01/12/2023): Added automatically from request for surgery [id number] Pelvic floor dysfunction in female 01/12/2023 Overview (01/12/2023): Added automatically from request for surgery [id number] GERARDO (stress urinary incontinence, female) 2022 Overview (01/12/2023): Added automatically from request for surgery [id number] Uterovaginal prolapse, incomplete 11/29/2022 Mixed stress and urge urinary incontinence 11/29 Surgical History Surgery Date Site/Laterality Comments TONSILLECTOMY TUBAL LIGATION KIDNEY STONE SURGERY THYROIDECTOMY COLONOSCOPY CYSTOCELE REPAIR 02/28/2023 N/A .; Surgeon: Quiana Young MD; Location: [facility] MAIN OR; Service: Gynecology Medical devices from this surgery are in the Medical Devices section. AL COLPOPEXY VAGINAL INTRAPERITONEAL APPROACH 02/28/2023 N/A N/A N/A N/A .; Surgeon: Quiana Young MD; Location: [facility] MAIN OR; Service: Gynecology Medical devices from this surgery are in the Medical Devices section. URETHROPEXY 02/28/2023 N/A .; Surgeon: Quiana Young MD; Location: [facility] MAIN OR; Service: Gynecology Medical devices from this surgery are in the Medical Devices section. Medical History Medical History Date Comments Diabetes mellitus (HCC) Urinary incontinence Heartburn Motion sickness Family History Medical History Relation Name Comments Cancer Father Cancer Mother Diabetes Mother Heart Disease Mother High Blood Pressure Mother High Cholesterol Mother Stroke Mother Anesth Problems Neg Hx Relation Name Status Comments Father Mother Social History Tobacco Use Types Packs/Day Years Used Date Smoking Tobacco: Never Smokeless Tobacco: Never Tobacco Cessation:Counseling Given: Not Answered Alcohol Use Standard Drinks/Week Comments Never 0 (1 standard drink = 0.6 oz pur e alcohol) Comments No Sex and Gender Information Value Date Recorded Sex Assigned at Not on file Legal Sex Female 7:55 AM EDT Gender Identity Not on file Sexual Orientation Not on file Last Filed Vital Signs Vital Sign Reading Time Taken Comments Blood Pressure 97/58 02/28/2023 1:36 PM EDT Pulse 85 08/24/2024 9:29 AM EDT Temperature 36.2 C (97.2 F) 02/28/2023 1:36 PM EDT Respiratory Rate 20 02/28/2023 1:36 PM EDT Oxygen Saturation 98% 08/24/2024 9:29 AM EDT Inhaled Oxygen Concentration - - Weight 63 kg (139 lb) 08/24/2024 9:29 AM EDT Height 157.5 cm (5' 2 ) 02/28/2023 6:31 AM EDT Body Mass Index 25.42 02/28/2023 6:31 AM EDT Plan of Treatment Health Maintenance Due Date Last Done Comments Annual Wellness Exam 08/28/1967 Hepatitis C Screening 1982 DTaP/TDaP/Td (1 - Tdap) 08/28/1983 Breast Cancer Screening 2004 Cologuard 2009 Colon Cancer Screening 2009 Colonoscopy 2009 FIT 2009 Sigmoidoscopy 2009 Virtual Colonography 2009 Pneumococcal Vaccine 50+ (1 of 1 - PCV) 2014 Zoster (1 of 2) 2014 COVID-19 Vaccine ( - 2024-2 6 season) 2025 Influenza Vaccine (#1) 2025 Hepatitis B Vaccine Aged Out No longe r eligible based on patient's age to complete this topic Meningococcal B Vaccine Aged Out No l onger eligible based on patient's age to complete this topic Medical Devices Implanted Type Area Value Engineer Device Identifier Shelf Expiration Date Model / Serial / Lot Robinara Sl Short Length Mesh Sling 12cm - [id number] Implanted:Qty: 1 on 02/28/2023 by Quiana Young MD at [facility] N/A: Vagina [employer] 04/30/2027 [id number] SL / / [id number] Insurance SHERRI PPO SHERRI PPO Care Teams Timber Sizer Operator Relationship Specialty Start Date End Date Hugo Powers MD [address] [facility] [address] [place] [address] PCP - General Family Medicine 02/07/23
--- OUTSIDE RECORDS SUMMARY | 2025-06-07 10:10 | XMS_ITS | Clinical Summary ---
Author Organization [facility] Address [address] [place] [address] Care Team Providers Care Brasswind Instrument Repairer Name Role Phone Angel Porter MD Primary Care Provider [phone] Family History Medical History Relation Name Comments Lung cancer Father Family history of lung cancer Breast cancer Mother Family history of malignant neoplasm of breast Lung cancer Mother Breast cancer Other Relation Name Status Comments Father Mother Other Social History Tobacco Use Types Packs/Day Years Used Date Smoking Tobacco: Never Alcohol Use Standard Drinks/Week Comments Yes 0 (1 standard drink = 0.6 oz pur e alcohol) Comments Unknown Sex and Gender Information Value Date Recorded Sex Assigned at Not on file Legal Sex Female 6:06 PM EDT Gender Identity Not on file Sexual Orientation Not on file Last Filed Vital Signs Vital Sign Reading Time Taken Comments Blood Pressure - - Pulse - - Temperature - - Respiratory Rate - - Oxygen Saturation - - Inhaled Oxygen Concentration - - Weight 80.3 kg (177 lb 0.1 oz) 05/27/2016 10:52 AM EST Height 157.5 cm (5' 2 ) 05/27/2016 10:52 AM EST Body Mass Index 32.38 05/27/2016 10:52 AM EST Plan of Treatment Health Maintenance Due Date Last Done Comments [facility]-Depression Screening 1965 [facility]-Infant/Child/Adol SDOH Screenings 1965 [facility]- SDOH Screenings 1982 [facility]-Adult SDOH Screenings 1982 [facility]-DTaP,Tdap,and Td Vaccine s (1 - Tdap) 08/28/1983 [facility]-Pap Smear 1985 [facility]-Cervical Cancer Screening 1994 [facility]-HPV/Cotest 1994 CT Colonography 2009 Colonoscopy 2009 FIT-DNA 2009 FIT 2009 FOBT 2009 Sigmoidoscopy 2009 [facility]-Colorectal Cancer Screening 2009 [facility]-Pneumococcal Vaccine: 50 + Years (1 of 1 - PCV) 2014 [facility]-Zoster Vaccines (1 of 2) 2014 [id number] Vaccine (1 - 20 25-26 season) 2025 [facility]-Influenza Vaccine (#1) 2025 [facility]-RSV Vaccine: 60+ Years o r (1 - 1-dose 75+ series) 08/28/2039 HPV Vaccines (No Doses Required) Completed [facility]-HIB Vaccines Aged Out No longer e ligible based on patient's age to complete this topic [facility]-Hepatitis A Vaccines Aged Out No longer eligible based on patient's age to complete this topic [facility]-IPV Vaccines Aged Out No longer e ligible based on patient's age to complete this topic [facility]-Rotavirus Vaccines Aged Out No lo nger eligible based on patient's age to complete this topic Care Teams Brasswind Instrument Repairer Relationship Specialty Start Date End Date Angel Porter MD [facility] [id number] PCP - General 10/24/20
--- OUTSIDE RECORDS SUMMARY | 2025-06-07 10:11 | XMS_ITS | Patient Health Record ---
Author Organization [facility] Address [address] [place] [phone] Care Team Providers Care Clinical Dermatologist Name Role Phone Rafael Porter Primary Care Provider [phone] Remedios Escobedo Unavailable [phone] Allergies No Known Allergies Results Component Value Reference Range Notes Glycohemoglobin A1c (in hous e) Reviewed date:08/06/2024 09:16:03 AM Interpretation:5.4% Performing Lab: Notes/Report: 5.4% glycohemoglobin 5.4% 5 - 6.5 % Cologuard Reviewed date:08/16/2024 04:10:22 PM Interpretation:Negative Performing Lab: Notes/Report: Negative P-Comprehensive Metabolic Pa roxanna (CMP) Reviewed date:08/06/2024 09:16:14 AM Interpretation: Performing Lab: Notes/Report: Test performed by [facility], DDN [facility] , [address], [place] [address] Bertin Macedo MD, Immigration Inspector CLIA: [id number] Sodium 143 135-145 mmol/L Potassium 4.4 3.5-5.3 [...] 80 Performing Lab: Notes/Report: Test performed by [facility] [address] [place] [address] , [address], [place] [address] Bertin Macedo MD, Immigration Inspector CLIA: [id number] Cholesterol 171 <200 mg/dL Triglycerides 80 <150 [...] Interpretation:0.30 Performing Lab: Notes/Report: Test performed by [facility] [address] [place] [address] , [place] [address] Bertin Macedo MD, Immigration Inspector CLIA: [id number] TSH 0.30 0.43-5.25 mU/L X ray : Shoulder, right Reviewed date:08/06/2024 03:41:03 PM Interpretation:mild degenerative change Performing Lab: Notes/Report: mild degenerative change X ray : neck, ap view Reviewed date:08/06/2024 03:41:20 PM Interpretation:Negative DDD Performing Lab: Notes/Report: Negative DDD X ray : Neck, lateral Reviewed date:08/03/2024 10:43:08 AM Interpretation: Performing Lab: Notes/Report: P-TSH Reviewed date:11/07/2024 03:39:36 PM Interpretation:10.2 Performing Lab: Notes/Report: Test performed by [facility] [address] [place], [place] [address] [place] , [address], [place] [address] Bertin Macedo MD, Immigration Inspector CLIA: [id number] TSH 10.20 0.43-5.25 mU/L P-TSH Reviewed date:02/15/2025 03:05:14 PM Interpretation:0.65 Performing Lab: Notes/Report: Test performed by [facility], [address] , [address], [place] [address] Bertin Macedo MD, Immigration Inspector CLIA: [id number] TSH 0.65 0.43-5.25 mU/L Reason For Referral No Information Medications Medication SIG (Take, Route, Frequency, Duration) Notes Start Date End Date Status Meloxicam 15 MG 1 tablet Orally Once a day; Duration: 30 days Active Levothyroxine Sodium 50 MCG 1 tablet in the morning on an empty stomach Orally Once a day; Duration: 30 days Active Montelukast Sodium 10 MG take 1 tablet b y mouth every day Orally Once a day; Duration: 90 days Active Rosuvastatin Calcium 20 MG 1 tablet Oral ly Once a day; Duration: 90 days Active metFORMIN HCl 500 MG 1 tablet with a norman l Orally twice a day; Duration: 90 days Active Coenzyme Q10 100 MG 1 cap(s) orally once a day 12/09/2016 Active PriLOSEC OTC 20 MG 1 tab(s) orally once a day Active metroNIDAZOLE 0.75 % 1 aashish applied topic ally 2 times a day; Duration: 90 day(s) 09/21/2022 Active Immunizations Vaccine Route Administration Date Status Comme nts Tetanus Tdap-Adacel (over 7yrs) IM Intramuscular 11/05/2015 Administered COVID 19 Kelley Unknown 08/20/2020 Administered Problems Problem Type SNOMED Code ICD Code Onset Dates Problem Status W/U Status Risk Notes Problem Type 2 diabetes mellitus (85790511) Type 2 diabetes mellitus (E11.9) Active confirmed Problem Sinusitis (73151980) Sinusitis (J32.9) Active confirmed Problem Hyperlipidemia (61104564) Hyperlipidemia (E78.5) Active confirmed Problem Otitis externa (2039654) Otitis externa (H60.90) Active confirmed Problem Rosacea (499523943) Rosacea (L71.9) Active conf irmed Problem Plantar wart (51292164) Plantar wart (B07.0) Active confirmed Problem Midline cystocele (703766680) Cystocele, midline (N81.11) Active confirmed Problem Herniation of rectum into vagina (825848640) Rectocele (N81.6) Active confirmed Problem Gastroesophageal reflux disease without esophagitis (391785018) Gastroesophageal reflux disease without esophagitis (K21.9) Active confirmed Problem Acquired hypothyroidism (405444655) Acquired hypothyroidism (E03.9) Active confirmed Problem Hypothyroidism (20342071) Hypothyroidism (E03.9) Active confirmed Problem Neck pain (42808581) Neck pain (M54.2) Active confirmed Problem Hyperlipidaemia (77777542) Hyperlipidemia, unspecified hyperlipidemia type (E78.5) Active confirmed Problem Acne rosacea (648647838) Acne rosacea (L71.9) Active confirmed Problem Inflammation of joint of shoulder region (664446267) Shoulder arthritis (M19.019) Active confirmed Vital Signs Heart Rate 61 /min 08/20/2024 Blood pressure diastolic 70 mm Hg 08/20/2024 Height 63 in 08/20/2024 Blood pressure systolic 120 mm Hg 08/20/2024 Weight 144.4 lbs 08/20/2024 BMI 25.58 kg/m2 08/20/2024 Encounters Encounter Location Date Provider Diagnosis [facility] [address] [place], [place] [id number] 07/31/2024 Remedios Escobedo Acquired hypothyroid ism E03.9 ; Hyperlipidemia E78.5 ; Type 2 diabetes mellitus E11.9 ; Neck pain M54.2 ; Shoulder pain M25.519 ; Acne rosacea L71.9 ; Gastroesophageal reflux disease without esophagitis K21.9 ; Colon cancer screening Z12.11 and Allergic cough R05 [facility] [address] [facility] [address] [place], [place] [phone] 08/20/2024 Remedios Escobedo Shoulder arthritis M19.019 [facility] [address] [place], [place] [phone] 11/02/2024 Remedios Escobedo Acquired hypothyroid ism E03.9 [facility] [address] [facility] [address] [place], [place] [id number] 02/12/2025 Remedios Escobedo Acquired hypothyroid ism E03.9 [facility] [address] [place], [place] [id number] 08/06/2024 Remedios Escobedo Acquired hypothyroid ism E03.9 [facility] [address] [place] [id number] 08/15/2024 Rafael Porter Acquired hypothyroid ism E03.9 [facility] [address] [place] [phone] 05/15/2025 Rafael Porter Assessments Encounter Date Diagnosis (ICD Code) Assessment Notes Treatment Notes Treatment Clinical Notes Section Notes 08/06/2024 Acquired hypothyroidism (ICD-10 - E03.9) 08/15/2024 Acquired hypothyroidism (ICD-10 - E03.9) 08/20/2024 Shoulder arthritis (ICD-10 - M19.019) she will begin specific exercises as directed by her insurance [place]; heat/ice application prn 02/12/2025 Acquired hypothyroidism (ICD-10 - E03.9) 11/02/2024 Acquired hypothyroidism (ICD-10 - E03.9) 07/31/2024 Hyperlipidemia (ICD-10 - E78.5) 07/31/2024 Acquired hypothyroidism (ICD-10 - E03.9) 07/31/2024 Type 2 diabetes mellitus (ICD-10 - [...] Z12.11) 07/31/2024 Allergic cough (ICD-10 - R05) 08/20/2024 Other she will FU in 2 months for repeat TSH Plan Of Treatment Pending Test Test Name Order Date Mammogram 05/15/2025 P-TSH 07/12/2023 Insurance Providers Payer Name Payer Address Payer Phone Subscriber Number Group Number Insured Name Patient Relationship to Insured Coverage Start Date Coverage End Date [employer] [address] [place] [address] [id number] TOVA MONTENEGRO Self - patient is the insured Medical (General) History Medical History History ICD Code Hypothyroidism DM CHRONIC RIGHT EAR INFECTIONS Rosacea Surgical History Surgery Date(Month/Year) tubal tonsillectomy kidney stones Thyroid removed- 05/16/16 Hospitalization History Reason Date(Month/Year) see above
--- NOTE | 2025-06-07 10:12 | MM_ITS ---
PROCEDURE INFORMATION: Exam: MG Bilateral Screening 3D Mammography Exam date and time: 06/07/2025 10:14 AM Age: 59 years old Clinical indication: Screening mammogram TECHNIQUE: Imaging protocol: Bilateral Screening tomosynthesis and 2D mammography including computer-aided detection (CAD) when performed. COMPARISON: 1. MG MM DIG SCREENING MAMM BI W/CAD 04/26/2024 1:42 PM 2. MG MM DIG SCREENING MAMM BI W/CAD 04/14/2023 10:15 AM FINDINGS: MAMMOGRAPHY: Breast composition: There are scattered areas of fibroglandular density. Mass: None. Architectural distortion: No new or suspicious architectural distortion. Calcifications: No new or suspicious calcifications are present Asymmetric density: No new or suspicious asymmetric density is present Skin thickening: None. Axillary adenopathy: None. IMPRESSION: No mammographic evidence of malignancy. Recommend annual screening mammography unless otherwise clinically indicated. ASSESSMENT: BI-RADS category 1: Negative.
== END 2025-06-07 23:59 | disposition home or self-care (01) ==
LOC: RAD 10:08
PROVIDERS: PCP Nurse Practitioner Family; Visit Provider Family Medicine
DX: Z12.31 Encounter for screening mammogram for malignant neoplasm of breast (principal); R92.323 Mammographic fibroglandular density, bilateral breasts
CPT/HCPCS: 77063; 77067